=== PATIENT | female | born 2000 | race African-American/Black ===

== ENCOUNTER 2021-03-26 13:44 | Emergency (ER) | payer MEDICAID ==
[~2021-03-26] VITALS: Ht 165.1 cm; Wt 75.0 kg
[2021-03-26 13:46] VITALS: BP 114/67
[2021-03-26] MEDS ORDERED: IBUPROFEN 600MG TABLET PO ONE (14:45)
[2021-03-26] MEDS ORDERED: HYDROCODONE/ACETAMINOPHEN 5/325MG TABLET PO ONE (14:45)
[2021-03-26] MEDS ORDERED: IBUP-2029 MT (16:17)
[2021-03-26] MEDS ORDERED: HYDR-4346 MT (16:17)
== END 2021-03-26 16:39 | disposition home or self-care (01) ==
LOC: ER 13:44
DX: S92.001A Unspecified fracture of right calcaneus, initial encounter for closed fracture (principal); V19.88XA Pedal cyclist (driver) (passenger) injured in other specified transport accidents, initial encounter; Y93.89 Activity, other specified; Y92.89 Other specified places as the place of occurrence of the external cause; Y99.8 Other external cause status
CPT/HCPCS: 29515; 73590; 73600; 73630; 99284